=== PATIENT | female | born 1995 | race Caucasian/White ===

== ENCOUNTER 2019-09-26 19:57 | Emergency (ER) | payer BC ==
[~2019-09-26] VITALS: Ht 157.5 cm; Wt 54.4 kg
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
[2019-09-26] MEDS ORDERED: Neosporin Oint Ud Pkt TOPIC ONE (20:15)
[2019-09-26 20:17] VITALS: BP 130/80
[2019-09-26] MEDS ORDERED: IBUPROFEN600 M1 ORAL (21:13)
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
== END 2019-09-26 21:40 | disposition home or self-care (01) ==
LOC: EMR 21:39
DX: S20.212A Contusion of left front wall of thorax, initial encounter (principal); W34.00XA Accidental discharge from unspecified firearms or gun, initial encounter; Y92.9 Unspecified place or not applicable
CPT/HCPCS: 71045; 93005; 99282